=== PATIENT | male | born 1970 | race Caucasian/White ===

== ENCOUNTER 2020-08-11 11:20 | Emergency (ER) | payer OTHER ==
[~2020-08-11] VITALS: Ht 170.2 cm; Wt 93.0 kg
[2020-08-11 11:24] VITALS: BP 142/98
--- NOTE | 2020-08-11 11:30 | NUR ---
Pt c/o episodic sx of near syncope, fatiuge, and generalized weakness, and heart palpatations x 3 days and 2-3 weeks of dizziness. Pt denies the dizziness is room-spinning like. Denies any covid related sx. DENIES N/V/D; SKIN IS PINK/WARM/DRY; AAOX4 WITH EVEN AND STEADY GAIT; LUNGS CLEAR BL; HR EVEN AND REGULAR; PT DENIES ANY FEVER, CP, SOB, OR COUGH AT THIS TIME; PATIENT STATES PAIN OF 0/10 AT THIS TIME; VSS; PATIENT POSITIONED FOR COMFORT; HOB ELEVATED; BEDRAILS UP X1; BED DOWN. ER MD MADE AWARE OF PT STATUS.
--- NOTE | 2020-08-11 12:18 | NUR ---
Patient being evaluated by Dr. Renteria at bedside.
[2020-08-11] MEDS ORDERED: NACL 0.9% 1,000 ML IV ONE (12:25)
[2020-08-11] MEDS ORDERED: ASPIRIN 81 MG TAB.CHEW PO ONE (12:25)
--- NOTE | 2020-08-11 12:42 | NUR ---
Pt report given to Melodie BRISENO. Transfer of care at this time.
[2020-08-11 12:43] LABS: BASOPHILS % (AUTO) 0.7 % (0.0-2.0); EOSINOPHILS # (AUTO) 0.2 K/uL (0-0.4); EOSINOPHILS % (AUTO) 3.6 % (0.0-4.0); HEMATOCRIT 40.1 % (36-52); HEMOGLOBIN 13.4 g/dL (12.0-18.0); LYMPHOCYTES # (AUTO) 1.5 K/uL (2.0-11.5); LYMPHOCYTES % (AUTO) 35.1 % (20.5-51.1); MEAN CORPUSCULAR HEMOGLOBIN 31 pg (27-31); MEAN CORPUSCULAR HGB CONC 34 g/dL (33-37); MEAN CORPUSCULAR VOLUME 93.2 fL (80-94); MONOCYTES # (AUTO) 0.5 K/uL (0.8-1.0); MONOCYTES % (AUTO) 11.4 % (1.7-9.3); NEUTROPHILS % (AUTO) 49.2 % (42.2-75.2); PLATELET COUNT (AUTO) 203 K/uL (140-450); RED CELL DISTRIBUTION WIDTH 13.6 % (11.6-13.7); WHITE BLOOD COUNT (AUTO) 4.2 K/uL (4.8-10.8)
[2020-08-11 13:22] LABS: ALBUMIN 3.5 g/dL (3.4-5.0); ANION GAP 12.5 (8-16); CARBON DIOXIDE 26.5 mmol/L (21-32); CREATININE 1.1 mg/dL (0.6-1.3); TOTAL BILIRUBIN 0.8 mg/dL (0.0-1.0)
[2020-08-11] MEDS ORDERED: HEPARIN PER PHARMACY MC PRN (13:55)
[2020-08-11] MEDS ORDERED: hePARIN / DEXT 5% PREMIX 250 ML IV ONE (13:55)
[2020-08-11 14:15] LABS: FREE T4 (FREE THYROXINE) 0.86 ng/dL (0.76-1.46); THYROID STIMULATING HORMONE 1.45 uIU/mL (0.34-3.74)
--- NOTE | 2020-08-11 14:27 | NUR ---
CALLED LAB FOR THE ADDING ORDER OF PT AND PTT.
--- NOTE | 2020-08-11 15:00 | NUR ---
Patient to be transferred to [facility]. Is being transferred due to NSTEMI. Receiving facility has accepting physician and available space. ER physician has signed transfer form. Patient or responsible republican has agreed to transfer and signed form. Patient belongings inventoried and will be sent with patient. Copy of nursing notes, lab reports, EKG, Physicians Orders and X-rays to be sent with patient. Report called to NANCY at receiving facility. [facility] ambulance service has been called for transfer. ETA is 40MINS.
--- NOTE | 2020-08-11 15:05 | NUR ---
TX CONSENT OBTAINED AT BEDSIDE FROM PT.
--- NOTE | 2020-08-11 15:24 | NUR ---
[facility] IS [place] PT AT BEDSIDE.
[2020-08-11 15:25] VITALS: BP 119/84
--- NOTE | 2020-08-11 15:26 | NUR ---
HEPARIN DRIP AND HEPARIN BOLUS NOT GIVEN DUE TO PENDING PT AND PTT RESULTS.
[2020-08-11 16:31] LABS: PROTHROMBIN TIME 12.7 secs (10.8-13.4)
--- NOTE | 2020-08-14 12:17 | NUR ---
LATE ENTRY - CONFIRMED WITH RN END TIME FOR NORMAL SALINE IS 1340 08/11/20.
== END 2020-08-11 15:24 | disposition home or self-care (01) ==
LOC: MED 11:20
DX: I21.4 Non-ST elevation (NSTEMI) myocardial infarction (principal); R55 Syncope and collapse; E11.9 Type 2 diabetes mellitus without complications
CPT/HCPCS: 36415; 71045; 80053; 83735; 83880; 84439; 84443; 84484; 85025; 85610; 85730; 93005; 96360; 99285; J7030